=== PATIENT | female | born 2000 | race Asian ===

== ENCOUNTER 2019-03-09 21:08 | Emergency (ER) | payer BC ==
--- NOTE | 2019-03-09 23:26 | EDM.PDOC ---
ED HPI GENERAL MEDICAL PROBLEM - General Chief Complaint: Chest Pain Stated Complaint: HEART PALPITATIONS Time Seen by Provider: 03/09/19 23:13 Source of Information: Reports: Patient History Limitations: Reports: No Limitations - History of Present Illness INITIAL COMMENTS - FREE TEXT/NARRATIVE: 18-year-old female presents to the ED with a sensation of heart racing and skipping since around 1500hrs today. She states that she did have a lot of extra coffee this morning with espresso/latte containing more caffeine than she would usually take. She denies any street drug use. Denies any recent decongestant use. She does not drink alcohol and does not smoke. She feels that she is otherwise in good health. She states the palpitations occurred off and on until about 1900 hrs. tonight. Since he's been in the ED they seem to have gotten better. She's been on the monitor for an hour and a half and has no showed no signs of arrhythmia. Her ECG done by the triage nurse also shows sinus rhythm at 80 per minute. There is early R-wave transition and left ventricular hypertrophy pattern compatible with her age. It is a normal ECG for her age. At the time and that I examined her she was not experiencing the palpitations. She did recognize earlier that she was quite tremulous as well. She has not had palpitations in the past. Has no known thyroid disorder. Onset: Today Onset Date: 03/09/19 Onset Time: 15:00 Duration: Resolved Prior to Arrival Location: Reports: Chest (Feeling of heart racing skipping and going faster than normal and beating hard in her chest.) Quality: Reports: Other Severity: Moderate (Palpitations) Improves with: Reports: Other (They seem to have gotten better) Worsens with: Reports: None Context: Reports: Other (Seemed to develop palpitations mid afternoon after drinking a fair amount of caffeinated products this morning.). Denies: Activity , Exercise, Lifting, Sick Contact, Trauma Associated Symptoms: Denies: Confusion ( Continue much more than usual.), Chest Pain, Cough, cough w sputum, Diaphoresis, Fever/Chills, Headaches, Loss of Appetite, Malaise, Nausea/Vomiting, Rash, Seizure, Shortness of Breath, Syncope , Weakness Treatments PROPERTY ECONOMIST: Reports: Other (see below) (None.) Social & Family History - Living Situation & Occupation Living situation: Reports: Single Occupation: Student ED ROS GENERAL - Review of Systems Review Of Systems: See Below Constitutional: Denies: Fever, Chills, Malaise, Weakness, Fatigue, Decreased Appetite, Weight Loss HEENT: Reports: Glasses Respiratory: Reports: No Symptoms Cardiovascular: Reports: Palpitations Endocrine: Reports: No Symptoms (See history of present illness) GI/Abdominal: Reports: No Symptoms : Reports: No Symptoms Musculoskeletal: Reports: No Symptoms Skin: Reports: No Symptoms Neurological: Reports: No Symptoms Psychiatric: Reports: No Symptoms Hematologic/Lymphatic: Reports: No Symptoms Immunologic: Reports: No Symptoms ED EXAM, GENERAL - Physical Exam Exam: See Below Exam Limited By: No Limitations General Appearance: Alert, WD/WN, Anxious, Mild Distress Eye Exam: Bilateral Eye: Normal Inspection Throat/Mouth: Normal Inspection, Normal Lips, Normal Oropharynx Head: Atraumatic, Normocephalic Neck: Normal Inspection, Supple, Non-Tender, Full Range of Motion. No: Lymphadenopathy (L), Lymphadenopathy (R) Respiratory/Chest: No Respiratory Distress, Lungs Clear, Normal Breath Sounds, No Accessory Muscle Use, Respiratory Distress Cardiovascular: Normal Peripheral Pulses (Mild tachypnea due to being anxious.) , Regular Rate, Rhythm, No Edema, No Gallop, No Murmur, No Rub Peripheral Pulses: 3+: Carotid (L), Carotid (R), Posterior Tibial (L), Posterior Tibial (R), Dorsalis Pedis (L), Dorsalis Pedis (R) GI/Abdominal: Normal Bowel Sounds, Soft, Non-Tender, No Organomegaly, No Abnormal Bruit, No Mass, Pelvis Stable Back Exam: Normal Inspection, Full Range of Motion Extremities: Normal Inspection, Normal Range of Motion, Non-Tender Neurological: Alert, Oriented, CN II-XII Intact, Normal Cognition Psychiatric: Normal Mood, Anxious Skin Exam: Warm, Dry, Intact, Normal Color, No Rash EKG INTERPRETATION EKG Date: 03/09/19 Time: 21:53 Rhythm: NSR Rate (Beats/Min): 80 [place]: Normal P-Wave: Present QRS: Other (Early R-wave transition and left ventricular hypertrophy pattern normal for her age.) ST-T: Normal QT: Normal EKG Interpretation Comments: Normal ECG for age. Course - Vital Signs Last Recorded V/S: Last Vital Signs Temp 36.6 C 03/09/19 21:27 Pulse 100 03/09/19 21:27 Resp 21 H 03/09/19 21:27 BP 122/89 03/09/19 21:27 Pulse Ox 97 03/09/19 21:27 - Orders/Labs/Meds Orders: Active Orders 24 hr Category Date Time Status EKG Documentation Completion [RC] ASDIRECTED Care 03/09/19 21:33 Active EKG 12 Lead [EK] Stat Ther 03/09/19 21:33 Ordered - Radiology Interpretation Free Text/Narrative:: 18-year-old female attends the ED with feeling of palpitations off and on since 1500 hrs. today. She has not had these experience in the past. It appears that she may have gotten into a lot more caffeine this morning than normal and what had a latte/espresso around noon. In the ED and on the monitor she shows no signs of any arrhythmias. She has sinus rhythm at 80 per minute. Normal physical examination. No palpable thyroid. Patient reassured at this point time I think it's the caffeine that has caused her current issues. If the palpitations persist or recur it deserves further investigation. To be reassured by these findings that there was nothing surgically wrong with her heart etc. Departure - Departure Time of Disposition: 23:23 Disposition: Home, Self-Care 01 Reason for Transfer *Q: Other Condition: Fair Clinical Impression: Palpitations Instructions: Palpitations Referrals: PCP,None [Primary Care Provider] - Forms: ED Department Discharge Additional Instructions: Evaluation the emergency room today in regards to development of palpitations that she were able to feel with heart racing and working hard in your chest. This seemed to occur after drinking more caffeine than normal before noon today. He recognized also that you were having a tremor in your hands and feeling slightly nauseated for a period of time. Examination of your ECG shows normal sinus rhythm with no sign of any abnormalities. Monitoring in the ED for over an hour and a half showed no extra beats or skips. Examination of heart and lungs is completely normal as well. Strongly suspect that caffeine caused her palpitations today. In the future where he of alcohol as a cardiac irritant that can cause palpitations as well as any nicotine products. Watch out for decongestants that may be found in sinus medications /cold medications and cough syrups in the future. It's okay to drink coffee usually in moderation 2 cups per day. Suggest no further use of Lactaid or expressible copies which are much stronger and caffeine content. Avoid all energy drinks as they are usually very high and concentration of caffeine. Follow-up with personal care physician if any further problems occur. - My Orders Last 24 Hours: My Active Orders 03/09/19 21:33 EKG Documentation Completion [RC] ASDIRECTED EKG 12 Lead [EK] Stat - Assessment/Plan Last 24 Hours: My Active Orders 03/09/19 21:33 EKG Documentation Completion [RC] ASDIRECTED EKG 12 Lead [EK] Stat
== END 2019-03-09 23:43 | disposition home or self-care (01) ==
LOC: JD.ED 21:08
DX: R00.2 Palpitations (principal)
CPT/HCPCS: 93005; 93010; 99283; 99284-25

== ENCOUNTER 2020-11-05 20:53 | Emergency (ER) | payer BC, OTHER ==
--- NOTE | 2020-11-05 21:32 | EDM.PDOC ---
ED HPI GENERAL MEDICAL PROBLEM - General Chief Complaint: Laceration Stated Complaint: INJURED LEFT THUMB Time Seen by Provider: 11/05/20 21:09 Source of Information: Reports: Patient, RN Notes Reviewed History Limitations: Reports: No Limitations - History of Present Illness INITIAL COMMENTS - FREE TEXT/NARRATIVE: Patient is a 20-year-old female presenting to the emergency department with complaints of an avulsion to the distal aspect of her dorsal left thumb. She states around 1400 this afternoon, she was peeling vegetables and peeled the distal portion of her left dorsal thumb. She presents to the ER because it would not stop bleeding. Her last tetanus vaccination was in 2017. Left Finger-Thumb Pain Score (Numeric/FACES): 5 - Related Data Allergies Allergy/AdvReac Type Severity Reaction Status Date / Time No Known Allergies Allergy Verified 11/05/20 21:11 Home Meds: Home Meds . [No Known Home Meds] 11/05/20 [History] Past Medical History - Past Health History Medical/Surgical History: Denies Medical/Surgical History Social & Family History - Family History Family Medical History: No Pertinent Family History - Tobacco Use Tobacco Use Status *Q: Never Tobacco User Second Hand Smoke Exposure: No - Caffeine Use Caffeine Use: Reports: None - Recreational Drug Use Recreational Drug Use: No - Living Situation & Occupation Living situation: Reports: Single Occupation: Student ED ROS GENERAL - Review of Systems Review Of Systems: Comprehensive ROS is negative, except as noted in HPI. ED EXAM, SKIN/RASH Exam: See Below General Appearance: Alert, WD/WN, No Apparent Distress Respiratory/Chest: No Respiratory Distress, Lungs Clear, Normal Breath Sounds, No Accessory Muscle Use, Chest Non-Tender Cardiovascular: Normal Peripheral Pulses, Regular Rate, Rhythm, No Edema, No Gallop, No JVD, No Murmur, No Rub Extremities: Other (1 cm area of superficial avulsion to the distal aspect of the left dorsal thumb. Small area of fingernail is also avulsed. Moderate amount of active bleeding.) Course - Vital Signs Last Recorded V/S: Last Vital Signs Temp 99.6 F 11/05/20 21:08 Pulse 110 H 11/05/20 21:08 Resp 16 11/05/20 21:08 BP 123/80 11/05/20 21:08 Pulse Ox 98 11/05/20 21:08 - Re-Assessments/Exams Free Text/Narrative Re-Assessment/Exam: Patient is a 20-year-old female presenting to the emergency department with complaints of an avulsion of the distal aspect of her left dorsal thumb. She was peeling vegetables and peeled off a small area of fingernail as well as the underlying tissues. There is a moderate amount of bleeding. Area was cleansed with sterile saline and CHG soap. I have applied quick clot dressing as well as an overlying tube gauze dressing. We will monitor the patient in the ER for well to ensure that the bleeding does not continue. 11/05/20 22:02 Patient has had no bleeding through the dressing that was applied. Recommend that she keep this dressing in place for 2 days and remove. Advised that she should soak off the quick clot dressing as to avoid removing the newly epithelialized area. Discharge instructions as documented. Departure - Departure Time of Disposition: 22:04 Disposition: Home, Self-Care 01 Condition: Good Clinical Impression: Avulsion of finger tip Qualifiers: Encounter type: initial encounter Qualified Code(s): S61.209A - Unspecified open wound of unspecified finger without damage to nail, initial encounter - Discharge Information *PRESCRIPTION DRUG MONITORING PROGRAM REVIEWED*: No *COPY OF PRESCRIPTION DRUG MONITORING REPORT IN PATIENT CRISTIN: No Referrals: PCP,None [Primary Care Provider] - Forms: ED Department Discharge Additional Instructions: You were seen in the emergency department today for evaluation with regards to the lesion on your left thumb done by a vegetable chris earlier today. While in the ER, the wound was cleansed. A quick clot dressing was applied. This should stay on for 2 days. After that, you may remove the dressing. Do not pull the gauze off the wound as it would likely be stuck. Soak the finger in water in order to remove the gauze. Wash gently with soap and water. Recommend applying [id number] antibiotic ointment and a Band-Aid. If the area is significantly tender, you may apply a thicker dressing as needed. Watch for signs of infection including increased redness, swelling, or purulent drainage. If this should occur, he should be evaluated in the clinic or return to the emergency department for evaluation. Sepsis Event Note (ED) - Evaluation Sepsis Screening Result: No Definite Risk - Focused Exam Vital Signs: Vital Signs Temp Pulse Resp BP Pulse Ox 11/05/20 21:08 99.6 F 110 H 16 123/80 98
== END 2020-11-05 22:24 | disposition home or self-care (01) ==
LOC: JD.ED 20:53
DX: S61.102A Unspecified open wound of left thumb with damage to nail, initial encounter (principal); W26.8XXA Contact with other sharp object(s), not elsewhere classified, initial encounter
CPT/HCPCS: 99282; 99283